=== PATIENT | male | born 1990 | race Caucasian/White ===

== ENCOUNTER 2017-07-13 23:06 | Emergency (ER) | payer OTHER ==
[2017-07-14 02:13] LABS: ANION GAP 4 MEQ/L (8-16); BLOOD UREA NITROGEN 19 MG/DL (7-18); CALCIUM LEVEL 8.9 MG/DL (8.5-10.1); CARBON DIOXIDE LEVEL 28 MEQ/L (21-32); CHLORIDE LEVEL 108 MEQ/L (98-107); CPK CREATINE PHOSPHOKINASE 130 U/L (39-308); CREATININE FOR GFR 1.15 MG/DL (0.70-1.30); GLOMERULAR FILTRATION RATE > 60.0 (>60); GLUCOSE, FASTING 96 MG/DL (70-100); POTASSIUM SERUM 3.6 MEQ/L (3.5-5.1); SODIUM LEVEL 140 MEQ/L (136-145)
[2017-07-14 02:24] LABS: BASO # 0.1 10^3/uL (0.0-0.2); EOS # 0.3 10^3/uL (0.0-0.50); EOS % 3.8 % (0.0-3.0); HEMATOCRIT 45.8 % (42.0-52.0); HEMOGLOBIN 15.5 g/dl (14.0-18.0); IMMATURE GRANULOCYTE % 0.2 % (0-3.0); LYMPH # 2.8 10^3/uL (1.5-6.5); LYMPH % 34.8 % (24.0-44.0); MEAN CORPUSCULAR HEMOGLOBIN 29.7 pg (27.0-33.0); MEAN CORPUSCULAR HGB CONC 33.8 g/dl (32.0-36.5); MEAN CORPUSCULAR VOLUME 87.7 fl (80.0-96.0); MONO # 0.7 10^3/uL (0.0-0.8); MONO % 9.1 % (0.0-5.0); NEUTROPHILS # 4.2 10^3/uL (1.8-7.7); NEUTROPHILS % 51.1 % (36.0-66.0); PLATELET COUNT, AUTOMATED 264 10^3/uL (150-450); RED BLOOD COUNT 5.22 10^6/uL (4.30-6.10); RED CELL DISTRIBUTION WIDTH 11.9 % (11.5-14.5); WHITE BLOOD COUNT 8.1 10^3/uL (4.0-10.0)
[2017-07-14] MEDS: NS 1,000 ML IV (02:30)
== END 2017-07-14 03:32 | disposition home or self-care (01) ==
LOC: M ED 23:06
DX: R51 Headache (principal); R20.9 Unspecified disturbances of skin sensation
CPT/HCPCS: 70450

== ENCOUNTER 2019-10-09 11:44 | Emergency (ER) | payer OTHER ==
[~2019-10-09] VITALS: Ht 182.9 cm; Wt 75.6 kg
[2019-10-09 12:15] LABS: BASO # 0.1 10^3/uL (0.0-0.2); EOS # 0.1 10^3/uL (0.0-0.5); EOS % 2.3 % (0.0-3.0); HEMATOCRIT 47.3 % (42.0-52.0); HEMOGLOBIN 16.2 g/dl (13.5-17.5); LYMPH # 2.2 10^3/uL (1.5-5.0); LYMPH % 35.6 % (24.0-44.0); MEAN CORPUSCULAR HEMOGLOBIN 29.3 pg (27.0-33.0); MEAN CORPUSCULAR HGB CONC 34.2 g/dl (32.0-36.5); MEAN CORPUSCULAR VOLUME 85.7 fl (80.0-96.0); MONO # 0.6 10^3/uL (0.0-0.8); MONO % 9.2 % (0.0-5.0); NEUTROPHILS # 3.2 10^3/uL (1.5-8.5); NEUTROPHILS % 51.7 % (36.0-66.0); PLATELET COUNT, AUTOMATED 289 10^3/uL (150-450); RED BLOOD COUNT 5.52 10^6/uL (4.30-6.10); WHITE BLOOD COUNT 6.1 10^3/uL (4.0-10.0)
[2019-10-09 12:34] LABS: INR 0.98; PROTHROMBIN TIME 12.7 SECONDS (11.8-14.0)
[2019-10-09 12:43] LABS: ALBUMIN 4.5 GM/DL (3.2-5.2); ALT/SGPT 23 U/L (12-78); BILIRUBIN,DIRECT 0.2 MG/DL (0.0-0.2); BILIRUBIN,TOTAL 0.5 MG/DL (0.2-1.0); CK-MB VALUE MASS < 1.0 NG/ML (<3.6); CPK CREATINE PHOSPHOKINASE 116 U/L (39-308); LIPASE 138 U/L (73-393); MB/CK RELATIVE INDEX 0.86 (< OR =4); TOTAL PROTEIN 8.2 GM/DL (6.4-8.2); TROPONIN I < 0.02 NG/ML (< 0.10)
[2019-10-09 12:59] LABS: ERYTHROCYTE SEDIMENTATION RATE 1 mm/hr (0-15)
--- NOTE | 2019-10-09 13:13 | REP ---
CHEST, PORTABLE, AP: There is no evidence of acute infiltrate. No pleural effusion is seen. The heart is normal in size. The mediastinal silhouette is unremarkable. The visualized osseous structures are intact. IMPRESSION: No acute pulmonary disease. Electronically Signed by Mg Gold MD 10/10/2019 04:38 P
[2019-10-09 13:30] VITALS: BP 106/72
--- NOTE | 2019-10-10 09:32 | ECGEPIP ---
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
== END 2019-10-09 13:47 | disposition home or self-care (01) ==
LOC: M ED 11:44
DX: R07.9 Chest pain, unspecified (principal); M54.5 Low back pain

== ENCOUNTER 2019-12-05 15:16 | Emergency (ER) | payer OTHER ==
[~2019-12-05] VITALS: Ht 182.9 cm; Wt 74.1 kg
[2019-12-05] MEDS ORDERED: GABA600T4 PO (15:23)
[2019-12-05 17:00] VITALS: BP 130/67
--- NOTE | 2019-12-27 09:44 | ECGEPIP ---
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
== END 2019-12-05 17:09 | disposition home or self-care (01) ==
LOC: EDBD 15:16 → M ED 15:16
DX: R55 Syncope and collapse (principal); R07.89 Other chest pain; M54.9 Dorsalgia, unspecified; Z79.899 Other long term (current) drug therapy

== ENCOUNTER 2020-03-13 21:04 | Emergency (ER) | payer OTHER ==
[~2020-03-13] VITALS: Ht 182.9 cm; Wt 74.0 kg
[~2020-03-13 21:04] MED LIST: GABA600T4 PO
[2020-03-13] MEDS ORDERED: BACL10TA2 PO (21:19)
[2020-03-13] MEDS ORDERED: KETOROLAC 60MG 2ML VIAL IM ONE (22:00)
[2020-03-13 22:30] VITALS: BP 111/78
--- NOTE | 2020-03-14 06:38 | ECGEPIP ---
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
== END 2020-03-13 22:55 | disposition home or self-care (01) ==
LOC: M ED 21:04
DX: R07.9 Chest pain, unspecified (principal); M79.602 Pain in left arm; G89.29 Other chronic pain; R94.31 Abnormal electrocardiogram [ECG] [EKG]; Z79.899 Other long term (current) drug therapy
CPT/HCPCS: 93005; 96372; 99284; J1885

== ENCOUNTER → 2020-03-21 | Outpatient (CLI) | payer OTHER ==
[~2020-03-21] MED LIST changes: +BACL10TA2 PO
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
== END ==
LOC: M PAIN 08:30
PROVIDERS: ATTEND Nurse Practitioner Family
DX: M79.18 Myalgia, other site (principal); Z79.899 Other long term (current) drug therapy; J30.2 Other seasonal allergic rhinitis

== ENCOUNTER → 2020-03-25 | Outpatient (CLI) | payer SELFPAY | LOC: M LABSMTC 09:14 | PROVIDERS: ATTEND Pediatrics | DX: Z11.59 Encounter for screening for other viral diseases (principal) ==